=== PATIENT | female | born 1955 | race Hispanic/Latino ===

== ENCOUNTER 2017-01-30 09:25 | Outpatient (CLI) | payer MEDICARE, OTHER ==
--- NOTE | 2017-01-31 09:10 | PET Report ---
PET SB TO MT SUBSEQUENT: HISTORY: Restaging of right breast cancer. TECHNIQUE: 12.7 millicuries F-18 FDG was administered intravenously. Noncontrast CT images and PET images were obtained from the skull base to the proximal thighs. Fused images were reviewed on a workstation. The patient's blood glucose level measured 102. COMPARISON: 07/25/16. FINDINGS: BRAIN: physiologic FDG uptake in the imaged brain. NECK: physiologic FDG uptake. MEDIASTINUM: physiologic FDG uptake. LUNGS: physiologic FDG uptake. PLEURA/PERICARDIUM: physiologic FDG uptake. THORACIC LYMPH NODES: physiologic FDG uptake. HEPATOBILIARY: physiologic FDG uptake. Mean liver SUV measures 4.0. PANCREAS: physiologic FDG uptake. SPLEEN: physiologic FDG uptake. ADRENAL GLANDS: physiologic FDG uptake. KIDNEYS/RENAL COLLECTING SYSTEMS: physiologic FDG uptake. Right nephrectomy changes are again noted. BOWEL/MESENTERY: physiologic FDG uptake. PELVIC VISCERA: physiologic FDG uptake. ABDOMINAL/PELVIC LYMPH NODES: physiologic FDG uptake. MUSCULOSKELETAL: Stable 1.5 cm bone lesion in the right greater trochanter with no abnormal uptake. No new bony lesions are detected.. IMPRESSION: Negative PET/CT. Stable findings since 07/25/16.
== END 2017-01-30 09:26 | disposition home or self-care (01) ==
LOC: PET 09:25
PROVIDERS: ATTEND Internal Medicine Hematology & Oncology
DX: C50.511 Malignant neoplasm of lower-outer quadrant of right female breast (principal); M89.9 Disorder of bone, unspecified; Z90.5 Acquired absence of kidney
CPT/HCPCS: 78815; 82962; A9552

== ENCOUNTER 2017-06-05 07:33 | Outpatient (CLI) | payer MEDICARE ==
--- NOTE | 2017-06-06 10:37 | PET Report ---
PET/CT:06/05/17 07:33:00 CLINICAL: Breast cancer restaging. RADIOPHARMACEUTICAL: 14.8mCi F18-FDG. COMPARISON: 01/30/17 PET/CT TECHNIQUE- Following intravenous injection of F-18 FDG and an approximately 60 minute uptake period, CT and PET images from the mid skull to the upper thighs were acquired with the patient in the fasted state. No contrast was administered. The CT protocol used for this PET CT study is designed for attenuation correction and anatomic localization of PET abnormalities. This regulatory assistant CT is not desired to produce and cannot replace, ujknq-mg-pez-art diagnostic CT scans with specific imaging protocols for different body parts and indications. Plasma glucose at the time of this test: 91g/dl. The standardized uptake values (SUV) are normalized to patient body weight and indicate the highest activity concentration (SUV max) in a given disease site. FINDINGS: Brain--Physiologic FDG uptake in the visualized regions of the brain. Neck--Physiologic FDG uptake . Chest--Physiologic FDG uptake in mediastinal blood pool and myocardium. Lungs--No abnormal uptake. No pulmonary nodule or mass. Pleura/pericardium--No abnormal uptake. Thoracic nodes--No abnormal uptake. Hepatobiliary--No abnormal uptake. Liver background SUV mean, as a reference for comparing FDG studies, is 6.4 compared to 4.2 on the last exam. No liver mass. Spleen--No abnormal uptake. Pancreas--No abnormal uptake. Adrenal Glands--No abnormal uptake. Kidneys/Ureters/Bladder--No abnormal uptake. Status post right nephrectomy. Abdominopelvic Nodes--No abnormal uptake. Bowel/Peritoneum/Mesentery--No abnormal uptake. Pelvic organs--No abnormal uptake. Bones/Soft Tissues--No abnormal uptake. Stable right femoral trochanteric lucent lesion with a sclerotic margin. IMPRESSION- Stable disease.
== END 2017-06-05 07:34 | disposition home or self-care (01) ==
LOC: PET 07:33
PROVIDERS: ATTEND Internal Medicine Hematology & Oncology
DX: C50.511 Malignant neoplasm of lower-outer quadrant of right female breast (principal); M89.9 Disorder of bone, unspecified; Z90.5 Acquired absence of kidney; Z79.899 Other long term (current) drug therapy
CPT/HCPCS: 78815; 82962; A9552

== ENCOUNTER 2017-09-04 06:49 | Outpatient (CLI) | payer MEDICARE ==
--- NOTE | 2017-09-05 15:51 | PET Report ---
PET/CT:09/04/17 06:49:00 CLINICAL: Breast cancer restaging. RADIOPHARMACEUTICAL: 14.13mCi F18-FDG. COMPARISON: 06/05/17 PET/CT TECHNIQUE- Following intravenous injection of F-18 FDG and an approximately 60 minute uptake period, CT and PET images from the mid skull to the upper thighs were acquired with the patient in the fasted state. No contrast was administered. The CT protocol used for this PET CT study is designed for attenuation correction and anatomic localization of PET abnormalities. This fish checker CT is not desired to produce and cannot replace, gbbor-fp-uci-art diagnostic CT scans with specific imaging protocols for different body parts and indications. Plasma glucose at the time of this test: 112g/dl. The standardized uptake values (SUV) are normalized to patient body weight and indicate the highest activity concentration (SUV max) in a given disease site. FINDINGS: Brain--Physiologic FDG uptake in the visualized regions of the brain. Neck--Physiologic FDG uptake in mucosal structures. Focal FDG uptake in the left second molar tooth with SUV 12.2. Chest--Physiologic FDG uptake in mediastinal blood pool and myocardium. Lungs--No abnormal uptake. No pulmonary nodule or mass. Pleura/pericardium--No abnormal uptake. Thoracic nodes--No abnormal uptake. Hepatobiliary--No abnormal uptake. Liver background SUV mean, as a reference for comparing FDG studies, is 3.7 compared to 4.7 on the last exam. No liver mass. Spleen--No abnormal uptake. Pancreas--No abnormal uptake. Adrenal Glands--No abnormal uptake. Kidneys/Ureters/Bladder--No abnormal uptake. Abdominopelvic Nodes--No abnormal uptake. Bowel/Peritoneum/Mesentery--No abnormal uptake. Pelvic organs--No abnormal uptake. Bones/Soft Tissues--No abnormal uptake. Stable lucent lesion of the right greater trochanter. Other findings: Status post bilateral mastectomy with intact implants. IMPRESSION- Negative study.Stable right femoral trochanteric lucent lesion with a sclerotic margin. Benign uptake in a left molar tooth cavity.
== END 2017-09-04 06:50 | disposition home or self-care (01) ==
LOC: PET 06:49
PROVIDERS: ATTEND Internal Medicine Hematology & Oncology
DX: C50.511 Malignant neoplasm of lower-outer quadrant of right female breast (principal); M89.9 Disorder of bone, unspecified; R79.89 Other specified abnormal findings of blood chemistry; Z90.13 Acquired absence of bilateral breasts and nipples; Z98.82 Breast implant status
CPT/HCPCS: 78815; 82962; A9552

== ENCOUNTER 2018-12-10 10:38 | Outpatient (CLI) | payer MEDICARE ==
--- NOTE | 2018-12-11 09:16 | PET Report ---
PET/CT:12/10/18 10:38:00 CLINICAL: Breast cancer restaging. RADIOPHARMACEUTICAL: 12.985mCi F18-FDG. COMPARISON: 08/06/18 PET/CT TECHNIQUE- Following intravenous injection of F-18 FDG and an approximately 60 minute uptake period, CT and PET images from the mid skull to the upper thighs were acquired with the patient in the fasted state. No contrast was administered. The CT protocol used for this PET CT study is designed for attenuation correction and anatomic localization of PET abnormalities. This repair cameraman CT is not desired to produce and cannot replace, kxzrv-tl-osv-art diagnostic CT scans with specific imaging protocols for different body parts and indications. Plasma glucose at the time of this test: 118g/dl. The standardized uptake values (SUV) are normalized to patient body weight and indicate the highest activity concentration (SUV max) in a given disease site. FINDINGS: Brain--Physiologic FDG uptake in the visualized regions of the brain. Neck--Physiologic FDG uptake in mucosal structures and benign uptake in left upper dental caries. No mass or lymphadenopathy. Chest--Physiologic FDG uptake in mediastinal blood pool and myocardium. Lungs--No abnormal uptake. No pulmonary nodule or mass. Pleura/pericardium--No abnormal uptake. Thoracic nodes--No abnormal uptake. Hepatobiliary--No abnormal uptake. Liver background SUV mean, as a reference for comparing FDG studies, is 5.8 compared to 7.6 on the last exam. No liver mass. Spleen--No abnormal uptake. Pancreas--No abnormal uptake. Adrenal Glands--No abnormal uptake. Kidneys/Ureters/Bladder--No abnormal uptake. Abdominopelvic Nodes--No abnormal uptake. Bowel/Peritoneum/Mesentery--No abnormal uptake. Pelvic organs--No abnormal uptake. Bones/Soft Tissues--No abnormal uptake. Stable lesion of the right greater trochanter. The lesion is lucent with a sclerotic margin in the SUV is 3.5 compared to 3.3 on the last exam. This uptake is consistent with a background activity. No new bone lesions. Other findings: Status post bilateral mastectomy with intact breast implants. IMPRESSION- Negative study.
== END 2018-12-10 10:39 | disposition home or self-care (01) ==
LOC: PET 10:38
PROVIDERS: ATTEND Internal Medicine Hematology & Oncology
DX: C50.511 Malignant neoplasm of lower-outer quadrant of right female breast (principal); R73.09 Other abnormal glucose; Z90.12 Acquired absence of left breast and nipple
CPT/HCPCS: 78815; 82962; A9552

== ENCOUNTER 2019-02-12 12:55 | Outpatient (CLI) | payer MEDICARE ==
--- NOTE | 2019-02-15 09:54 | Mammography Report ---
DEXA BONE DENSITY SCAN INDICATION: BREAST CA/ ON AROMATASE INHIBITOR, postmenopausal female COMPARISON: None available. LUMBAR SPINE (L1-L4): Bone mineral density (BMD) is 1.153 g/cm2. T-score is 1.0 (standard deviations of Young Adult mean). Z-score is 2.5 (standard deviations of Age Matched mean). RIGHT FEMORAL NECK: Bone mineral density (BMD) is 1.032 g/cm2. T-score is 0.7 (standard deviations of Young Adult mean). Z-score is 1.8 (standard deviations of Age Matched mean). IMPRESSION: 1. WHO Classification: Normal bone density. Fracture Risk: Not Increased. Signer Name: Wilton Freeman MD Signed: 02/15/2019 9:50 AM Workstation Name: [id number]
== END 2019-02-12 12:56 | disposition home or self-care (01) ==
LOC: SPVWC 12:55
PROVIDERS: ATTEND Internal Medicine Hematology & Oncology
DX: C50.511 Malignant neoplasm of lower-outer quadrant of right female breast (principal); Z79.811 Long term (current) use of aromatase inhibitors; Z78.0 Asymptomatic menopausal state
CPT/HCPCS: 77080

== ENCOUNTER 2019-04-15 10:50 | Outpatient (CLI) | payer MEDICARE ==
--- NOTE | 2019-04-15 14:14 | PET Report ---
PET/CT HISTORY: C50.511. Restaging of right breast cancer TECHNIQUE: The patient's fasting blood glucose was 120. The patient weighed 245 lbs. The patient w as injected with 15.0 mCi of FDG in the left hand at 0726 hours and imaging was started at 1211 hours . The patient was imaged from the skull base to the thighs. All CT scans at this location are perfor med using CT dose reduction for ALARA by means of automated exposure control. Images were reviewed on a workstation. COMPARISON: 12/10/2018 FINDINGS: IMAGED BRAIN: [Physiologic FDG uptake] NECK: [Physiologic FDG uptake] CHEST WALL: [Physiologic FDG uptake]. Bilateral breast prostheses are intact. MEDIASTINUM: [Physiologic FDG uptake] LUNGS: [Physiologic FDG uptake] HEPATOBILIARY: [Physiologic FDG uptake] PANCREAS: [Physiologic FDG uptake SPLEEN: [Physiologic FDG uptake] KIDNEYS/BLADDER: [Physiologic FDG uptake]. 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 ADRENAL GLANDS: [Physiologic FDG uptake] GI/MESENTERY: [Physiologic FDG uptake] PELVIC VISCERA: [Physiologic FDG uptake] LYMPH NODES: [Physiologic FDG uptake] OSSEOUS STRUCTURES: [Physiologic FDG uptake]. The previously described 1.8 x 1.4 cm lesion in the ri ght greater trochanter of the proximal right femur is stable and remains hypometabolic. No new bony l esions are detected. ADDITIONAL FINDINGS: [None] IMPRESSION: Negative PET CT. No evidence for disease recurrence or metastasis. Signer Name: Nura Ordaz Jr, MD Signed: 04/15/2019 2:10 PM Workstation Name: [id number]
== END 2019-04-15 10:51 | disposition home or self-care (01) ==
LOC: PET 10:50
PROVIDERS: ATTEND Internal Medicine Hematology & Oncology
DX: C50.511 Malignant neoplasm of lower-outer quadrant of right female breast (principal); R73.09 Other abnormal glucose
CPT/HCPCS: 78815; 82962; A9552

== ENCOUNTER 2019-08-11 08:53 | Outpatient (CLI) | payer MEDICARE ==
[2019-08-11 10:27] LABS: Blood Urea Nitrogen 21 mg/dL (7-17)
--- NOTE | 2019-08-11 11:07 | Cat Scan Report ---
CT CHEST WITH CONTRAST HISTORY: History of right breast cancer. COMPARISON: 04/15/2019 PET/CT TECHNIQUE: Routine CT images of the chest were obtained following the administration of intravenous c ontrast. CONTRAST: 100 ml of Omnipaque 300. FINDINGS: Heart and Pericardium: No significant abnormality. Vasculature: No significant abnormality. Lymphatics: No lymphadenopathy. Lungs: Clear with no pulmonary nodule or mass. No pleural effusion. Trachea and Bronchi: No significant abnormality. Osseous Structures: No suspicious lesion. Additional Findings: Bilateral breast implants are intact. IMPRESSION: 1. Negative chest with no evidence of metastatic disease. Signer Name: Gaurang Silvestre MD Signed: 08/11/2019 11:03 AM Workstation Name: [id number]
--- NOTE | 2019-08-11 11:22 | Cat Scan Report ---
CT ABDOMEN AND PELVIS WITH CONTRAST HISTORY: History of right breast cancer. COMPARISON: 04/15/2019 PET/CT TECHNIQUE: Routine abdominal and pelvic CT exam performed following intravenous contrast administrat ion.. 100 cc of Omnipaque 300 was injected intravenously without incident. Consent was obtained prior to the administration of contrast. All CT scans at this location are performed using CT dose reducti on for ALARA by means of automated exposure control. FINDINGS: CT ABDOMEN: Lung Bases: No significant abnormality. Liver: No significant abnormality. Biliary: Normal bile ducts status post cholecystectomy. Spleen: No significant abnormality. Unenlarged. Pancreas: No significant abnormality. Adrenals: No significant abnormality. Kidneys: A single left kidney with several stable parapelvic cysts. The renal collecting system and u reter are nondilated. No renal mass, cyst or calculus. Lymphatics: No lymphadenopathy. Vasculature: No significant abnormality. Bowel/Peritoneum: No significant abnormality. No free air. No free fluid. Normal appendix. CT PELVIC: : No significant abnormality. The uterus is small. Normal left ovary. A right ovary is not identifi ed. No adnexal mass or free fluid. Lymphatics: No lymphadenopathy. Osseous Structures: No aggressive appearing osseous lesions. Additional Findings: A midline lower abdominal upper pelvic surgical excision with ellis. IMPRESSION: 1. No evidence of metastatic disease. 2. Status post cholecystectomy.. Signer Name: Gaurang Silvestre MD Signed: 08/11/2019 11:17 AM Workstation Name: [id number]
--- NOTE | 2019-08-11 12:40 | Nuclear Medicine Report ---
NM bone scan whole body INDICATION / CLINICAL INFORMATION: MET BR CA/RESTAGING SKULL THIGH/COMPARE WITH LAST ONE. TRACER: Technetium 99m MDP 25 mCi IV injection. COMPARISON: PET/CT 04/15/2019. FINDINGS: Physiologic tracer uptake is noted. Mild increased uptake is seen at the AC joints, knees and feet. M ild focal uptake is seen in the region of the left lesser trochanter. Negative for additional abnorma l uptake. IMPRESSION: 1. Small focus of uptake at the left lesser trochanter is nonspecific. This could be more completely evaluated with MRI as clinically indicated. 2. Multifocal DJD. Signer Name: Honorio Rueda MD Signed: 08/11/2019 12:36 PM Workstation Name: [id number]
== END 2019-08-11 08:54 | disposition home or self-care (01) ==
LOC: NM 08:53
PROVIDERS: ATTEND Internal Medicine Hematology & Oncology
DX: N28.1 Cyst of kidney, acquired (principal); C50.511 Malignant neoplasm of lower-outer quadrant of right female breast; Z90.49 Acquired absence of other specified parts of digestive tract
CPT/HCPCS: 36415; 71260; 74177; 78306; 82565; 84520; A9503; Q9967

== ENCOUNTER 2019-09-06 12:38 | Outpatient (CLI) | payer MEDICARE ==
[2019-09-06 13:36] LABS: Blood Urea Nitrogen 26 mg/dL (7-17)
--- NOTE | 2019-09-06 15:36 | Magnetic Resonance Report ---
MR PELVIS WITHOUT CONTRAST HISTORY: Abnormal findings on previous bone scan, history of breast cancer TECHNIQUE: Multisequence, multiplanar MRI without contrast. FINDINGS: Correlation is made with the bone scan dated 08/11/2019 describing a nonspecific focus of radiotracer u ptake overlying the lesser trochanter of the proximal left femur. Follow-up noncontrast MRI demonstra shelly no abnormality in this area. The bone marrow signal within the visualized lower lumbar spine, pel vis and proximal femurs are within normal limits. No suspicious bony lesion is identified on noncontr ast MRI. The bladder, uterus, adnexa and visualized bowel loops in the pelvis are unremarkable. No pelvic mass , adenopathy or inflammatory changes. IMPRESSION: Normal exam. No suspicious bone lesion is detected. See above. Signer Name: Nura Ordaz Jr, MD Signed: 09/06/2019 3:32 PM Workstation Name: [id number]
== END 2019-09-06 12:39 | disposition home or self-care (01) ==
LOC: MRI 12:38
PROVIDERS: ATTEND Internal Medicine Hematology & Oncology
DX: C50.511 Malignant neoplasm of lower-outer quadrant of right female breast (principal)
CPT/HCPCS: 36415; 72195; 82565; 84520

== ENCOUNTER 2020-03-16 08:27 | Outpatient (CLI) | payer MEDICARE ==
--- NOTE | 2020-03-16 13:24 | Cat Scan Report ---
CT of the chest with IV contrast. CT of the abdomen and pelvis with IV contrast INDICATION / CLINICAL INFORMATION: C50.511Malignant neoplasm of lower-outer quadrant of right female. Breast cancer restaging TECHNIQUE: Routine CT of the chest abdomen and pelvis with IV contrast per routine All CT scans at this location are performed using CT dose reduction for ALARA by means of automated exposure control. COMPARISON: 08/11/2019 FINDINGS: CHEST: There is evidence of bilateral mastectomy and breast implantation. No axillary adenopathy or d efinite chest wall recurrence is appreciated. There is no evidence of severe mediastinal adenopathy. There are several borderline enlarged right paratracheal nodes measuring up to about 5 mm in short ax is. No significant pericardial pleural effusion. The heart contains mild coronary artery calcificatio n. Review of the lungs demonstrates no evidence of metastatic disease. Abdomen and pelvis: Large fat-containing paraesophageal hernia. The liver, spleen, pancreas and adren al glands are unremarkable. There is absence of the right kidney. The left kidney contains multiple p arapelvic cysts. No definite hydronephrosis appreciated. No free air or free fluid. Shotty hazy mesen teric stranding persists from the prior exam and is grossly unchanged. No new intra-abdominal adenopa thy is identified. Scattered atherosclerotic calcification throughout a nondilated abdominal aorta. S igmoid diverticulosis. Urinary bladder is unremarkable. Review of bone windows demonstrates mild thoracolumbar type degenerative changes. IMPRESSION: No evidence of metastatic disease within the chest abdomen or pelvis. No significant gonzalez ge from August 2019. Signer Name: Callum Loco MD Signed: 03/16/2020 1:20 PM Workstation Name: [id number]
--- NOTE | 2020-03-16 13:50 | Nuclear Medicine Report ---
NUCLEAR MEDICINE BONE SCAN, WHOLE BODY INDICATION: C50.511Malignant neoplasm of lower-outer quadrant of right female. TECHNIQUE: 26 mCi of Tc-99m MDP were injected IV. Whole body images were obtained. COMPARISON: CT chest abdomen and pelvis performed the same day. Bone scan dated 08/11/2019. FINDINGS: Skeletal Structures: Fairly symmetric, likely degenerative uptake is present involving the shoulders , spine, knees and feet.. Skeletal Lesions: None. Soft Tissues: Normal. Kidneys: Normal, symmetric activity. Additional Findings: None. IMPRESSION: No evidence for osseous metastasis. No change since 08/11/2019 exam. Signer Name: Nura Ordaz Jr, MD Signed: 03/16/2020 1:45 PM Workstation Name: [id number]
== END 2020-03-16 08:28 | disposition home or self-care (01) ==
LOC: CT 08:27
PROVIDERS: ATTEND Internal Medicine Hematology & Oncology
DX: N28.1 Cyst of kidney, acquired (principal); I25.10 Atherosclerotic heart disease of native coronary artery without angina pectoris; C50.511 Malignant neoplasm of lower-outer quadrant of right female breast; K44.9 Diaphragmatic hernia without obstruction or gangrene; M47.815 Spondylosis without myelopathy or radiculopathy, thoracolumbar region
CPT/HCPCS: 36415; 71260; 74177; 78306; 82565; 84520; A9503; Q9967

== ENCOUNTER 2020-07-20 08:10 | Outpatient (CLI) | payer MEDICARE ==
[2020-07-20 09:29] LABS: Blood Urea Nitrogen 21 mg/dL (7-17)
--- NOTE | 2020-07-20 10:51 | Cat Scan Report ---
CT ABDOMEN AND PELVIS WITH CONTRAST HISTORY: BREAST CANCER COMPARISON: 03/16/2020 TECHNIQUE: Axial CT images were obtained through the abdomen and pelvis after 100 cc of IV contrast. Sagittal and coronal reformatted images. All CT scans at this location are performed using CT dose re duction for ALARA by means of automated exposure control. FINDINGS: CT ABDOMEN: Lung Bases: Clear. Liver: No significant abnormality. Biliary: Gallbladder is surgically absent. No biliary dilatation. Spleen: No significant abnormality. Unenlarged. Pancreas: No significant abnormality. Adrenals: No significant abnormality. Kidneys: The right kidney is absent. The left kidney is normal size and position and contains multipl e small parapelvic cysts. No focal lesion or hydronephrosis. Lymphatics: No lymphadenopathy. Vasculature: No significant abnormality. Bowel/Peritoneum: No significant abnormality. No free air. No free fluid. CT PELVIS: : No significant abnormality. Osseous Structures: No suspicious bony lesions are detected. Additional Findings: None IMPRESSION: Stable findings since 03/16/2020 exam. No evidence for metastatic disease to the abdomen. Signer Name: Nura Ordaz Jr, MD Signed: 07/20/2020 10:47 AM Workstation Name: [id number]
--- NOTE | 2020-07-20 10:59 | Cat Scan Report ---
CT CHEST WITH CONTRAST INDICATION / CLINICAL INFORMATION: BREAST CANCER. TECHNIQUE: Axial CT images were obtained through the chest after IV contrast. All CT scans at this location are performed using CT dose reduction for ALARA by means of automated exposure control. COMPARISON: CT dated 03/16/2020. FINDINGS: THORACIC AORTA: No significant abnormality. HEART: No significant abnormality. MEDIASTINUM / JAROCHO: No significant thoracic lymphadenopathy. LUNGS/PLEURA: No acute airspace disease. Tiny calcified granulomas noted throughout the lungs. No tena picious pulmonary nodule or mass. No pleural effusion or pneumothorax. ADDITIONAL CHEST FINDINGS: Stable appearance of the thyroid gland. Postoperative changes of bilateral mastectomy and breast prostheses noted. UPPER ABDOMEN: No acute findings. SKELETAL SYSTEM: No significant abnormality. IMPRESSION: No evidence of metastatic disease in the chest. No interval change from prior CT from 03/16/2020. Signer Name: iKn Odonnell MD Signed: 07/20/2020 10:54 AM Workstation Name: [id number]
--- NOTE | 2020-07-20 12:38 | Nuclear Medicine Report ---
NUCLEAR MEDICINE BONE SCAN, WHOLE BODY INDICATION: BREAST CANCER. TECHNIQUE: 26.3 mCi of Tc-99m MDP were injected IV. Whole body images were obtained. COMPARISON: CT chest abdomen and pelvis performed the same day. Bone scan dated 03/16/2020.. FINDINGS: Skeletal Structures: Fairly symmetric, likely degenerative uptake is present involving the shoulders , thoracolumbar spine, knees and feet. Skeletal Lesions: None. Soft Tissues: Normal. Kidneys: Normal, symmetric activity. Additional Findings: Right nephrectomy.. IMPRESSION: No evidence for osseous metastasis. No change since 03/16/2020 exam.. Signer Name: Nura Ordaz Jr, MD Signed: 07/20/2020 12:34 PM Workstation Name: [id number]
== END 2020-07-20 08:11 | disposition home or self-care (01) ==
LOC: NM 08:10
PROVIDERS: ATTEND Internal Medicine Hematology & Oncology
DX: C50.511 Malignant neoplasm of lower-outer quadrant of right female breast (principal)
CPT/HCPCS: 36415; 71260; 74177; 78306; 82565; 84520; A9503; Q9967

== ENCOUNTER 2021-02-15 06:43 | Outpatient (CLI) | payer MEDICARE ==
--- NOTE | 2021-02-15 10:07 | PET Report ---
PET/CT HISTORY: C50.411. Restaging of right breast cancer TECHNIQUE: The patient's fasting blood glucose was 101. The patient weighed 266 lbs. The patient w as injected with 14.7 mCi of FDG in the left antecubital fossa at 0731 hours and imaging was started at 0829 hours. The patient was imaged from the skull base to the thighs. [facility] CT dose reduction for ALARA by means of automated exposure control. Images wer e reviewed on a workstation. COMPARISON: 04/15/2019 PET/CT. CT chest abdomen and pelvis 07/20/2020 FINDINGS: IMAGED BRAIN: Physiologic FDG uptake. NECK: Physiologic FDG uptake. CHEST WALL: Physiologic FDG uptake. Bilateral breast prostheses are unremarkable. No recurrent breas t or chest wall mass is appreciated. MEDIASTINUM: Physiologic FDG uptake. LUNGS: Physiologic FDG uptake. HEPATOBILIARY: Physiologic FDG uptake. PANCREAS: Physiologic FDG uptake. SPLEEN: Physiologic FDG uptake. KIDNEYS/BLADDER: Physiologic FDG uptake. Right nephrectomy, agenesis or severe atrophy is again note d ADRENAL GLANDS: Physiologic FDG uptake. GI/MESENTERY: Physiologic FDG uptake. PELVIC VISCERA: Physiologic FDG uptake. LYMPH NODES: Physiologic FDG uptake. OSSEOUS STRUCTURES: Physiologic FDG uptake. Previously described 1.8 x 1.4 cm lesion in the greater trochanter of the right femur is unchanged and remains hypometabolic. ADDITIONAL FINDINGS: None. IMPRESSION: Negative PET CT. No evidence for disease recurrence or metastasis. Stable findings since 04/15/2019. Signer Name: Nura Ordaz Jr, MD Signed: 02/15/2021 10:02 AM Workstation Name: [id number]
== END 2021-02-15 06:44 | disposition home or self-care (01) ==
LOC: PET 06:43
PROVIDERS: ATTEND Internal Medicine Hematology & Oncology
DX: C50.511 Malignant neoplasm of lower-outer quadrant of right female breast (principal)
CPT/HCPCS: 78815; 82962; A9552

== ENCOUNTER 2021-08-30 08:21 | Outpatient (CLI) | payer MEDICARE ==
--- NOTE | 2021-08-30 10:47 | PET Report ---
PET/CT HISTORY: BREAST CA C50.511. Restaging of right breast cancer TECHNIQUE: The patient's fasting blood glucose was 98. The patient weighed 264 lbs. The patient wa s injected with 13.6 mCi of FDG in the left forearm at 0909 hours and imaging was started at 1005 [address] rs. The patient was imaged from the skull base to the thighs. All CT scans at this location are perf ormed using CT dose reduction for ALARA by means of automated exposure control. Images were reviewed on a workstation. COMPARISON: 02/15/2021 FINDINGS: IMAGED BRAIN: Physiologic FDG uptake. NECK: Physiologic FDG uptake. CHEST WALL: Physiologic FDG uptake. Bilateral breast prostheses are intact. MEDIASTINUM: Physiologic FDG uptake. LUNGS: Physiologic FDG uptake. HEPATOBILIARY: Physiologic FDG uptake. PANCREAS: Physiologic FDG uptake. SPLEEN: Physiologic FDG uptake. KIDNEYS/BLADDER: Physiologic FDG uptake. Right kidney absence is again noted. Stable renal sinus cys ts in the left kidney. ADRENAL GLANDS: Physiologic FDG uptake. GI/MESENTERY: Physiologic FDG uptake. PELVIC VISCERA: Physiologic FDG uptake. LYMPH NODES: Physiologic FDG uptake. OSSEOUS STRUCTURES: Physiologic FDG uptake. Previously described 1.8 x 1.4 cm lucent lesion in the r ight greater trochanter of the femur is unchanged and remains hypometabolic. ADDITIONAL FINDINGS: None. IMPRESSION: Negative PET CT. Stable findings since 02/15/2021. Signer Name: Nura Ordaz Jr, MD Signed: 08/30/2021 10:42 AM Workstation Name: [id number]
== END 2021-08-30 08:22 | disposition home or self-care (01) ==
LOC: PET 08:21
PROVIDERS: ATTEND Internal Medicine Hematology & Oncology
DX: C50.511 Malignant neoplasm of lower-outer quadrant of right female breast (principal)
CPT/HCPCS: 78815; 82962; A9552

== ENCOUNTER 2022-01-02 08:10 | Outpatient (CLI) | payer MEDICARE ==
[2022-01-02 09:23] LABS: Blood Urea Nitrogen 14 mg/dL (7-17)
--- NOTE | 2022-01-02 13:59 | Cat Scan Report ---
CT chest w con HISTORY: BREAST CANCER C50.511 COMPARISON: 07/20/2020 TECHNIQUE: Chest CT exam. All CT scans at this location are performed using CT dose reduction for ALA RA by means of automated exposure control. FINDINGS: CT CHEST: Lungs: No significant abnormality. Trachea and Bronchi: No significant abnormality. Mediastinum/Lymph nodes: No lymphadenopathy. Heart: No significant abnormality. Vasculature: No significant abnormality. Osseous Structures: No aggressive appearing osseous lesions. Additional Findings: Small sliding-type origin hernia. Tiny sclerotic lesion at T4 is most likely [place] and was present on prior exam. 2.2 cm right mid pole thyroid nodule. IMPRESSION: 1. No evidence of metastatic disease within the chest. 2. Incidental 2.2 cm right thyroid nodule meets criteria for dedicated thyroid ultrasound follow-up. Signer Name: Ubaldo Casper MD Signed: 01/02/2022 1:54 PM Workstation Name: [id number]
--- NOTE | 2022-01-02 14:13 | Cat Scan Report ---
CT abdomen pelvis w con INDICATION: BREAST CANCER C50.511. COMPARISON: 07/20/2020 TECHNIQUE: Abdominal and pelvic CT exam performed. All CT scans at this location are performed using CT dose reduction for ALARA by means of automated exposure control. FINDINGS: CT ABDOMEN and PELVIS: Lung Bases: No significant abnormality. Liver: No significant abnormality. Biliary: Gallbladder is surgically absent. Spleen: No significant abnormality. Pancreas: No significant abnormality. Adrenals: No significant abnormality. Kidneys: Left peripelvic cyst. Right kidney is absent. Lymphatics: No lymphadenopathy. Vasculature: Atherosclerosis without aneurysm. Bowel: No significant abnormality. Pelvis: No significant abnormality. Osseous Structures: No suspicious lesion. Additional Findings: Postoperative clips along the ventral abdominal wall. IMPRESSION: 1. No metastasis. Signer Name: Ubaldo Casper MD Signed: 01/02/2022 2:08 PM Workstation Name: [id number]
--- NOTE | 2022-01-02 14:24 | Nuclear Medicine Report ---
NUCLEAR MEDICINE WHOLE BODY BONE IMAGING STUDY. HISTORY: Z51.11 COMPARISON: Bone scan 07/20/2020. TECHNIQUE: The patient was administered 26.6 mCi of technetium 99m labeled MDP intravenously. FINDINGS: There is bilateral, relatively symmetric articular activity which is most likely degenerative given t he distribution and symmetry. Asymmetric activity at the left little finger is related to injection. No asymmetric radiotracer activity is seen within the included axial and appendicular skeleton. There is normal soft tissue activity in the left kidney and urinary bladder. IMPRESSION: No scintigraphic evidence of osseous metastatic disease. Presumed degenerative changes, as above. Signer Name: Frederick Gonzales MD Signed: 01/02/2022 2:19 PM Workstation Name: [id number]
== END 2022-01-02 08:11 | disposition home or self-care (01) ==
LOC: NM 08:10
PROVIDERS: ATTEND Internal Medicine Hematology & Oncology
DX: Z51.11 Encounter for antineoplastic chemotherapy (principal); C50.511 Malignant neoplasm of lower-outer quadrant of right female breast; C79.51 Secondary malignant neoplasm of bone; E04.2 Nontoxic multinodular goiter; D64.9 Anemia, unspecified; R68.89 Other general symptoms and signs; D70.9 Neutropenia, unspecified; D64.81 Anemia due to antineoplastic chemotherapy; E03.9 Hypothyroidism, unspecified; I10 Essential (primary) hypertension; M85.88 Other specified disorders of bone density and structure, other site; L72.3 Sebaceous cyst; J32.9 Chronic sinusitis, unspecified; N28.9 Disorder of kidney and ureter, unspecified; R00.0 Tachycardia, unspecified; D72.829 Elevated white blood cell count, unspecified; Z17.0 Estrogen receptor positive status [ER+]; I70.0 Atherosclerosis of aorta; Z90.49 Acquired absence of other specified parts of digestive tract
CPT/HCPCS: 36415; 71260; 74177; 78306; 82565; 84520; A9503; Q9967